=== PATIENT | female | born 1970 | race Caucasian/White ===

== ENCOUNTER 2019-03-28 20:32 | Inpatient (IN) ==
[2019-03-28] MEDS ORDERED: PANTOPRAZOLE IV 40 MG VIAL IVP ONE (21:13)
[2019-03-28] MEDS ORDERED: SIME PO ONE ×2 (21:13)
[2019-03-28] MEDS ORDERED: ONDANSETRON 4 MG/2 ML VIAL IVP ONE (21:13)
[2019-03-28] MEDS ORDERED: Lactated Ringers 1,000 ML PRIMARY IV ONE (21:13)
[2019-03-28] MEDS ORDERED: [UNRECOGNIZED DRUG - OTHER] PO ONE ×2 (21:13)
[2019-03-28] MEDS ORDERED: LIDOCAINE VISCOUS 2% PO ONE ×2 (21:13)
--- NOTE | 2019-03-28 21:13 | PDOC ---
Abdomen/Flank HPI - General Chief Complaint: Abdomen Pain Stated Complaint: UPPER ABD. PAIN Date Seen by Provider: 03/28/19 Time Seen by Provider: 20:45 Source: POSITIVE: Patient Exam Limitations: POSITIVE: No limitations Nurse's Notes Reviewed & Considered: Yes - Record Incomplete - History of Present Illness Initial Comments: 48 yo female presents to ED with complaint of abdominal pain for the past 4-5 days. It is in her upper abdomen and radiates into her right chest. She denies SOB/cough. Denies fevers/chills. Denies rhinorrhea/congestion/earache/sorethroat. Reports nausea with one vomiting episode. denies diarrhea. Body Location Affected: REPORTS: Chest, Abdomen Quality: REPORTS: Cramping, Sharpness Abdominal Pain Onset Location: REPORTS: RUQ, LUQ, Epigastric Abdominal Pain Radiation: REPORTS: Chest Modifying Factors: improves with: Analgesics. worse with: Vomiting Associated Symptoms: REPORTS: Chest pain, Chills, Heartburn, Nausea. DENIES: Diaphoresis, Fever, Shortness of breath, Syncope Similar Symptoms Previously: Yes (Patient states she had similar symptoms about 5 years ago) Recent Care Received: REPORTS: Other (Worked up 5 years ago and was told it wasnt her gallbladder) - Patient Home Medications Home Medications: Home Medications Methimazole 1 tab PO DAILY 04/23/18 - Patient Allergies Allergies/Adverse Reactions: Allergies Allergy/AdvReac Type Severity Reaction Status Date / Time No Known Allergies Allergy Verified 04/23/18 22:29 Past Medical History - heen HEENT History: Denies History Cardiovascular History: Denies History Respiratory History: Denies History Gastrointestinal History: Denies History Genitourinary History: Denies History Endocrine History: Hyperthyroidism Musculoskeletal History: Denies History Neurological History: Denies History Blood Disorders: Denies History Psychiatric History: Denies History History of Sexually Transmitted Diseases: No Cancer History: Denies History History of MDRO: No History of Other Communicable Diseases: No Tobacco Use: Current Every Day Smoker Alcohol Use: Occasionally In the Past 12 Months, Have Used or Abuse Any Substance: Marijuana Previous Surgical History: Yes Type / Date of Surgery: TONSILECTOMY Significant Family History: No pertinent family hx ROS - Limitations ROS Limitations: No Limitations Constitution: REPORTS: Chills. DENIES: Fever, Diaphoresis Cardiovascular: REPORTS: Chest Pain Respiratory: REPORTS: Denies Resp Symptoms Neurological: REPORTS: Denies Neuro Symptoms Gastrointestinal: REPORTS: Abdominal Pain, Nausea. DENIES: Vomitting, Diarrhea, Black Stools Endocrine: REPORTS: Denies Symptoms Musculoskeletal: REPORTS: Other (Chest wall and upper abdomen pain) Genitourinary: REPORTS: Denies Symptoms Eyes: REPORTS: Denies Symptoms ENT: REPORTS: Denies Symptoms Skin: REPORTS: Denies Skin Symptoms Lympathic: REPORTS: Denies Lympathic Symptoms Immunologic: POSITIVE: Denies Symptoms Psychiatric: POSITIVE: Denies Psych Symptoms Abdominal/Flank Pain PE - General Appearance General Appearance: POSITIVE: Alert, Mild Distress - HEENT HEENT: POSITIVE: Head Inspection Nml, Eyes Inspection Nml, Nose Inspection Nml, Oral/Dental Inspect. Nml, PERRL, EOMI, Dry Mucous Membranes - Neck Neck: POSITIVE: Normal Inspection, No Apparent Injury - Respiratory Respiratory: POSITIVE: No Respiratory Distress, Breath Sounds Normal - Cardiovascular Cardiovascular: POSITIVE: Regular Rate and Rhythm, Heart Sounds Normal, Equal Pulses, Strong Pulses, Tachycardia Peripheral Pulses: Radial (R): 2+, Radial (L): 2+, Dorsalis-pedis (R): 2+, Dorsalis-pedis (L): 2+ - Chest Chest: POSITIVE: Tender. NEGATIVE: Ecchymosis, Abrasion, Laceration - Abdomen Abdomen: Soft: (All Quadrants), Normal Bowel Sounds: (All Quadrants), Denies Tenderness: (LLQ), (RLQ), No Splenomegaly: (All Quadrants), No Hepatomegaly: (All Quadrants), No Guarding: (All Quadrants), No Rebound: (All Quadrants), No Distention: (All Quadrants), No Rigidity: (All Quadrants), Tenderness Noted: (RUQ), (LUQ) - Back Back: POSITIVE: Normal Inspection. NEGATIVE: CVA Tenderness (R), CVA Tenderness (L) - Skin Skin: POSITIVE: Intact, Normal For Race, Warm, Dry - Extremities Extremity: Non-Tender: (All Extremities), Normal ROM: (All Extremities), Normal Inspection: (All Extremities) - Neurological Neurological: POSITIVE: Affect Apporpriate, Oriented X3, household assistant Normal As Tested, Motor Normal, Sensation Normal - Psychological Psychiatric: POSITIVE: Affect Appropriate, Mood Appropriate Abdomen Progress - Results Reviewed by me Xrays/CTs/US Reviewed by me: Yes Discussed with Radiologist: No Lab Results Reviewed by Me: Yes CBC and BMP: 03/28/19 21:05 03/28/19 21:05 EKG Interpreted/Reviewed By Me:: Yes (NSR at [address]/T wave changes indicative of ischemia) EKG Interpretation:: POSITIVE: Normal Sinus Rhythm, Normal Rate, Normal QRS, Normal ST/T - Patient's Progress Pain Medication Addressed: POSITIVE: Yes Re-Examine Comment: Patient feels better after treatments here in ED. She states the GI cocktail seemed to help her symptoms the most. Xrays shows large calcification in RUQ of unknown origin. Will obtain CT of abdomen to further evaluate. Re-Examine Comment: CT of abdomen shows very large gallbladder with cholelithiasis (large stones) and pericholecystic edema and wall thickening. No free air. No free fluid. I discussed all results with the patient who expressed understanding of all results. Patient is still having pain despite dose of tramadol. Discussed case with Dr. Jurado, general surgery, and he recommended giving patient a dose of invanz now and admission for pain control, nausea control and consultation. I further discussed the case with Dr. Arevalo, hospitalist, who accepted the patient for admission. Status: POSITIVE: Improved (Pain less than started but still present) MDM / ED Course: IV line was established by nursing staff. Patient was given zofran, GI cocktail, protonix and a bolus of fluids. Will obtain acute abdominal series and EKG. Will obtain serum labs and UA. - Consult Consult (If Yes, Name of Consulting MD & Time Called): Yes (Dr. Jurado (general surgery)) Consulting MD will see pt:: [place] [facility] [place] Counseled: POSITIVE: Patient, Family, RE: Lab Results, RE: Radiology Results, RE: DX, RE: Need for F/U Patient Care Time - Estimated PCT Patient Care Time (In Minutes): 65 Vital Signs - VS Reviewed Vital Signs Reviewed: Yes Discharge Clinical Impression: Abdominal pain, Cholelithiasis and acute cholecystitis without obstruction, Nausea and vomiting Discharge Disposition: Admit to Inpatient Condition: Good Follow Up With: NONE,NONE [Primary Care Provider] - Care Transferred To: Dr. Arevalo with consultation by Dr. Jurado (surgery) Date Decision to Admit to Inpatient: 03/29/19 Time Decision to Admit to Inpatient: 01:09
[2019-03-28 21:18] LABS: BASOPHILS # (AUTO) 0.01 10*3/UL; BASOPHILS % (AUTO) 0.1 % (0-1); EOSINOPHILS # (AUTO) 0.05 10*3/UL; EOSINOPHILS % (AUTO) 0.6 % (0-8); Hematocrit [HCT] 41.5 % (37.0-47.0); Hemoglobin [HGB] 13.8 g/dL (12.0-16.0); LYMPHOCYTES # (AUTO) 2.71 10*3/uL; MEAN CORPUSCULAR HEMOGLOBIN 30.1 PG (27-31); MEAN CORPUSCULAR HGB CONC 33.3 g/dL (33-37); MEAN CORPUSCULAR VOLUME 90.6 FL (81-99); MEAN PLATELET VOLUME 9.7 FL (7.4-12.2); MONOCYTES % (AUTO) 7.1 % (5-15); NEUTROPHILS # (AUTO) 5.12 10*3/UL; NEUTROPHILS % (AUTO) 60.2 % (50-80); PLATELET MORPHOLOGY COMMENT NORMAL MORPHOLOGY (NORM); RBC MORPHOLOGY COMMENT NORMAL MORPHOLOGY (NORM); RED BLOOD COUNT 4.58 10^6/uL (4.20-5.40); WBC MORPHOLOGY COMMENT NORMAL MORPHOLOGY (NORM)
[2019-03-28 21:19] LABS: SERUM ALBUMIN 4.6 g/dL (3.5-4.8)
[2019-03-28 21:27] LABS: BILIRUBIN,URINE NEGATIVE (NEG); CLARITY,URINE CLEAR (CLEAR); COLOR,URINE YELLOW (Y); GLUCOSE, URINE (UA) NEGATIVE (NEG); OCCULT BLOOD,URINE SMALL (NEG); PH,URINE 6.5 (5.0-8.5); PROTEIN,URINE NEGATIVE (NEG); URINE SAMPLE TYPE CLEAN CATCH URINE; UROBILINOGEN,URINE 0.2 EU/dL (0.2)
[2019-03-28 21:31] LABS: BACTERIA,URINE RARE; SQUAMOUS EPITHELIAL CELL,UR RARE
--- NOTE | 2019-03-28 22:10 | DI ---
EXAM: XR Abdomen 2 Views With XR Chest CLINICAL HISTORY: ITS.REASON abdomen pain, chest pain Physician Notes: Tech Comments: TECHNIQUE: Frontal view of the chest, frontal view of the abdomen/pelvis and upright or decubitus view of the abdomen. COMPARISON: No relevant prior studies available. FINDINGS: Lungs: No consolidation. Pleural space: Unremarkable. No pneumothorax. Heart: Unremarkable. No cardiomegaly. Mediastinum: Unremarkable. Intraperitoneal space: Large calcification/concretion on the right side of the abdomen, seen in the upper and lower abdomen on different projections. No free air. Gastrointestinal tract: Unremarkable. Bones/joints: No acute fracture. Soft tissues: IUD. IMPRESSION: Large calcification/concretion on the right side of the abdomen, seen in the upper and lower abdomen on different projections.
[2019-03-28] MEDS ORDERED: traMADol 50 MG TABLET PO ONE (23:16)
--- NOTE | 2019-03-29 00:29 | DI ---
EXAM: CT Abdomen and Pelvis With Intravenous Contrast CLINICAL HISTORY: ITS.REASON pain, nausea, calcification on xrays Physician Notes: Tech Comments: TECHNIQUE: Axial computed tomography images of the abdomen and pelvis with intravenous contrast. COMPARISON: No relevant prior studies available. FINDINGS: Lung bases: Unremarkable. ABDOMEN: Liver: Unremarkable. Gallbladder and bile ducts: Gallbladder distention, cholelithiasis, wall thickening and pericholecystic edema. Pancreas: Unremarkable. Spleen: Unremarkable. Adrenals: Unremarkable. Kidneys and ureters: Nonobstructing left renal stone. Right kidney is unremarkable. Stomach and bowel: No federico mural thickening. Nonobstructive bowel gas pattern. PELVIS: Appendix: No findings to suggest acute appendicitis. Bladder: Unremarkable. Reproductive: IUD. ABDOMEN and PELVIS: Intraperitoneal space: Unremarkable. Bones/joints: No acute fracture. Soft tissues: Unremarkable. Vasculature: Unremarkable. No abdominal aortic aneurysm. Lymph nodes: No enlarged lymph nodes. IMPRESSION: Gallbladder distention, cholelithiasis, wall thickening and pericholecystic edema. Findings are consistent with cholecystitis. <MYCVCSECTION> [employer] 03/29/19 01:28 Verify Receipt Verified receipt with [facility] in ER given to MD Chaves on 03/29 01:28 (-06:00)
[2019-03-29] MEDS ORDERED: Ertapenem Inj 1 GM in Sodium Chloride 0.9% 100 ML IV ONE (01:04)
[2019-03-29] MEDS ORDERED: CALCIUM CARBONATE 500 MG (TUMS) CHEWABLE TABLET PO PRN (01:57)
[2019-03-29] MEDS ORDERED: LIDOCAINE W/ SODIUM BICARB 0.5 ML SYR SUBD PRN ×2 (01:57→11:05)
[2019-03-29] MEDS ORDERED: DOCUSATE 100 MG CAPSULE PO PRN (01:57)
[2019-03-29] MEDS ORDERED: ACETAMINOPHEN 325 MG TABLET PO PRN (01:57)
[2019-03-29] MEDS: ONDANSETRON 4 MG/2 ML VIAL IVP PRN ×2 (02:20→05:58)
[2019-03-29] MEDS: Lactated Ringers 1,000 ML PRIMARY IV SCH ×2 (02:20→09:30)
[2019-03-29] MEDS: MORPHINE SULFATE 2 MG/1 ML IVP PRN ×4 (02:20→08:14)
[2019-03-29 04:21] LABS: BASOPHILS # (AUTO) 0.01 10*3/UL; BASOPHILS % (AUTO) 0.1 % (0-1); EOSINOPHILS # (AUTO) 0.11 10*3/UL; EOSINOPHILS % (AUTO) 1.3 % (0-8); Hematocrit [HCT] 37.6 % (37.0-47.0); Hemoglobin [HGB] 12.2 g/dL (12.0-16.0); LYMPHOCYTES # (AUTO) 2.35 10*3/uL; MEAN CORPUSCULAR HEMOGLOBIN 29.8 PG (27-31); MEAN CORPUSCULAR HGB CONC 32.4 g/dL (33-37); MEAN CORPUSCULAR VOLUME 91.7 FL (81-99); MEAN PLATELET VOLUME 9.8 FL (7.4-12.2); MONOCYTES # (AUTO) 0.74 10*3/UL (0.3-0.8); MONOCYTES % (AUTO) 8.7 % (5-15); NEUTROPHILS # (AUTO) 5.27 10*3/UL; NEUTROPHILS % (AUTO) 62.1 % (50-80)
[2019-03-29 04:23] LABS: PLATELET MORPHOLOGY COMMENT NORMAL MORPHOLOGY (NORM); RBC MORPHOLOGY COMMENT NORMAL MORPHOLOGY (NORM); WBC MORPHOLOGY COMMENT NORMAL MORPHOLOGY (NORM)
[2019-03-29 04:30] LABS: BLOOD UREA NITROGEN 6 mg/dL (7-22); BUN/CREATININE RATIO 6.66 (6-20); SERUM ALBUMIN 3.6 g/dL (3.5-4.8)
[2019-03-29] MEDS ORDERED: Methimazole Tab 5 MG TAB PO SCH (09:00)
--- NOTE | 2019-03-29 09:39 | PDOC ---
HPI - History of Present Illness History of Present Illness: 48 yo female presents to ED complaining of R upper quadrant pain for 4 days. occasional nausea .Diagnosed with Acute ramona and was asked by Dr Jurado to admit the pt and he would see her this AM. Pt pain is controlled with morphine labs are available this morning as requested by Dr Jurado. Past Medical History Medical History: hyperthroidism Tobacco Use: Current Every Day Smoker In the Past 12 Months, Have Used or Abuse Any of the Following Substance: Marijuana Medication / Allergies Home Medications: Home Medications Medication Instructions Recorded Confirmed Methimazole 1 tab PO DAILY 04/23/18 03/29/19 Allergies/Adverse Reactions: Allergies Allergy/AdvReac Type Severity Reaction Status Date / Time No Known Allergies Allergy Verified 03/29/19 02:08 Review of Systems - Review of Systems All Systems: Reviewed & No Additional Complaints Except as Stated - Respiratory Respiratory: DENIES: Negative System Review, Cough, Sputum, Dyspnea At Rest, Dyspnea with Exertion, Pleuritic Pain, Hemoptysis, Wheezing, Other, See HPI - Cardiovascular Cardiovascular: DENIES: Negative System Review, Chest Pain, Edema, Syncope, Palpitations, Orthopnea, Paroxysmal Nocturnal Dyspnea, Other, See HPI - Gastrointestinal Gastrointestinal / Abdominal: REPORTS: Nausea, Abdominal Pain. DENIES: Vomiting, Diarrhea, Bloody Stool, Melena, Bright Red Blood per Rectum Exam - Vitals Vital Signs: Vital Signs Temperature 97.0 F Temperature Source Temporal Artery Scan Pulse Rate [Pulse Oximeter] 58 Pulse Rate 67 Respiratory Rate 16 Blood Pressure [Right Arm] 111/56 Blood Pressure [Left Arm] 130/58 Blood Pressure 134/75 Pulse Ox 94 Oxygen Delivery Method Room Air Height 5 ft 5 in Weight 144 lb Results - Labs CBC and BMP: 03/29/19 04:03 03/29/19 04:03 Assessment and Plan - Patient Problems (1) Cholelithiasis and acute cholecystitis without obstruction Current Visit: Yes Status: Acute Comment: defer to Dr jurado , labs reviewed ,morphine for pain Code(s): K80.00 - Calculus of gallbladder with acute cholecystitis without obstruction (2) Abdominal pain Current Visit: Yes Status: Acute Comment: prn morphine Code(s): R10.9 - Unspecified abdominal pain (3) Nausea and vomiting Current Visit: Yes Status: Acute Comment: zofran iv as needed Code(s): R11.2 - Nausea with vomiting, unspecified
[2019-03-29] MEDS ORDERED: BUPIVACAINE 0.25% W/ EPI - 10 ML VIAL ONE ×2 (10:54→12:30)
[2019-03-29] MEDS ORDERED: Bacteriostatic NaCl Inj 30ml Vial ONE ×2 (10:54→12:34)
[2019-03-29] MEDS ORDERED: MIDAZOLAM HCL 2 MG/2 ML VIAL ONE (10:55)
[2019-03-29] MEDS ORDERED: fentaNYL Inj 100 MCG/2 ML VIAL ONE ×2 (10:55→13:08)
[2019-03-29] MEDS ORDERED: Iothalamate Meglumine 30 ML VIAL IV ONE (10:59)
[2019-03-29] MEDS ORDERED: LIDOCAINE MPF 2% - 5 ML (20 MG/1 ML) ONE (10:59)
[2019-03-29] MEDS ORDERED: PROPOFOL 10 MG/1 ML (200 MG/20 ML) VIAL IV ONE (11:00)
[2019-03-29] MEDS ORDERED: Nasal Sanitizer POPSWAB ampule 3 AMP (Nozin) PREOP DOSE ENOS SCH (11:00)
[2019-03-29] MEDS ORDERED: ROCURONIUM 10 MG/1 ML - 5 ML VIAL IVP ONE (11:03)
[2019-03-29] MEDS ORDERED: KETAMINE 100 MG/1 ML - 5 ML ONE (11:04)
[2019-03-29] MEDS ORDERED: IPRATROPIUM/ALBUTEROL SULFATE 3 ML NEB NEB ONE ×2 (11:04→11:52)
--- NOTE | 2019-03-29 11:04 | CRNA.PROGR ---
Anesthesia Time - Procedure/Recovery Time Start Date: 03/29/19 End Date: 03/29/19 Anesthesia : Time In: 12:02 Anesthesia : Time Out: 13:57 Anesthesia : Total Time: 115 - Total Anesthesia Time Total Anesthesia Time (minutes): 115 - Other Weight: 65.862 kg Height: 5 ft 5 in Body Mass Index (BMI): 24.1 Physical Status: P2 (tobacco) Anesthesia Type: General Anesthesia : ET
[2019-03-29] MEDS ORDERED: Prochlorperazine Edisylate Inj 10mg/2ml vial IVP PRN (11:05)
[2019-03-29] MEDS ORDERED: HYDROmorphone 2 MG/1 ML IVP PRN (11:05)
[2019-03-29] MEDS ORDERED: ATROPINE SULFATE 0.4 MG/1 ML VIAL IVP PRN (11:05)
[2019-03-29] MEDS ORDERED: ONDANSETRON 4 MG/2 ML VIAL IVP PRN ×2 (11:05→14:38)
[2019-03-29] MEDS ORDERED: fentaNYL Inj 100 MCG/2 ML VIAL IVP PRN (11:05)
--- NOTE | 2019-03-29 11:05 | CONSULT ---
Consult Note - Consult Consult Date: 03/29/19 Reason for Consult: PreOp Consulation : General Surgery Requesting Physician: Dr. Kuldeep Calderón, Dr. Arevalo Primary Care Provider: NONE NONE - History of Present Illness History of Present Illness: The patient is a 48-year-old female who presents with a distended gallbladder with possible inflammation and large gallstones. Patient reports she's been having problems for years. 3 years ago she saw in [place]. She had a workup of her gallbladder and was told she had no gallbladder problems. However that was fired shortly thereafter. She reports that for years she has had attacks. There is a strong family history of gallbladder problems. They are epigastric and right upper quadrant pain with nausea and vomiting and bloating. The to happen every 6 months but now over 3-4 times a week. For the last 5 days she has had an unrelenting attack. She presented to the emergency room last night. An x-ray showed large calcifications in the right upper quadrant. Subsequent CT scan showed a distended gallbladder with wall thickening and edema as well as large gallstones. She was not toxic. She was afebrile. Her lab work was unremarkable. She was admitted to the hospitalist service and I'm asked to see her in consultation. She was given a gram of Invanz IV early this morning. She has had some pain medicines. She still has the discomfort. Review of Systems - Gastrointestinal Gastrointestinal / Abdominal: REPORTS: Nausea, Abdominal Pain, Poor Appetite, Heartburn, Bloating, See HPI Past Medical History Medical History: hyperthroidism Surgical History: History of tonsillectomy. History of wisdom teeth extraction. Tobacco Use: Current Every Day Smoker (1 pack a day.) In the Past 12 Months, Have Used or Abuse Any of the Following Substance: Maribraulio uana Alcohol Use: Rarely Medication / Allergies Home Medications: Home Medications Medication Instructions Recorded Confirmed Methimazole 1 tab PO DAILY 04/23/18 03/29/19 Allergies/Adverse Reactions: Allergies Allergy/AdvReac Type Severity Reaction Status Date / Time No Known Allergies Allergy Verified 03/29/19 02:08 Results - Labs CBC and BMP: 03/29/19 04:03 03/29/19 04:03 - Imaging Status: Image Reviewed by Me (And discussed with the radiologist.), Report Reviewed by Me Exam - Vitals Vital Signs: Vital Signs Temperature 97.4 F Temperature Source Temporal Artery Scan Pulse Rate [Pulse Oximeter] 51 Pulse Rate 67 Respiratory Rate 16 Blood Pressure [Right Arm] 156/72 Blood Pressure [Left Arm] 130/58 Blood Pressure 134/75 Pulse Ox 95 Oxygen Delivery Method Room Air Height 5 ft 5 in Weight 145 lb 3.2 oz - General General Appearance: Cooperative, Mild Distress - Eye Eye Exam: POSITIVE: No Scleral Icterus - Respiratory Respiratory Exam: POSITIVE: Clear to Auscultation - Bilaterally, Breathing Non Labored - Cardiovascular Cardiovascular Exam: POSITIVE: RRR, No Murmur - GI/Abdominal GI/Abdominal Exam: POSITIVE: Normal Bowel Sounds, Soft, Positive for RUQ Pain Additional GI/Abdominal Exam Details: Right upper quadrant tenderness to palpation. Fullness. - Rectal Rectal Exam: POSITIVE: Deferred - Neurological Neurological Exam: POSITIVE: Alert, Oriented x 3 - Psychiatric Psychiatric Exam: POSITIVE: Normal Affect, Normal Mood Assessment and Plan - Patient Problems (1) Cholelithiasis with chronic cholecystitis without biliary obstruction Current Visit: Yes Status: Acute Priority: High Comment: Possibly acute cholecystitis based on CT scan but not on lab work. Proceed with laparoscopic cholecystectomy with interoperative cholangiogram.The procedure has been discussed with the patient in complete yet simple terms incl uding benefits, risks, and alternatives. All questions have been answered. Informed consent has been obtained. Code(s): K80.10 - Calculus of gallbladder with chronic cholecystitis without obstruction
--- NOTE | 2019-03-29 11:05 | EKG ---
[address] [address] Measurements Intervals [place] Rate: 83 P: 74 IA: 121 QRS: 76 QRSD: 96 T: 67 QT: 365 QTc: 404 Interpretive Statements SINUS RHYTHM No previous ECG available for comparison Electronically Signed On 03-29-19 15:50:41 MDT by Gabriel Chahal [email or web address]
[2019-03-29] MEDS ORDERED: Lactated Ringers 1,000 ML PRIMARY IV SCH ×2 (11:15→14:38)
[2019-03-29] MEDS ORDERED: DEXAMETHASONE PF 10 MG/1 ML VIAL ONE (12:41)
[2019-03-29] MEDS ORDERED: ONDANSETRON 4 MG/2 ML VIAL ONE (12:45)
[2019-03-29] MEDS ORDERED: Lactated Ringers 1,000 ML PRIMARY IV ONE (13:18)
[2019-03-29] MEDS ORDERED: KETOROLAC 30 MG/1 ML VIAL ONE (13:36)
--- NOTE | 2019-03-29 13:57 | GEN.OPNOTE ---
Operative Note Surgery Date: 03/29/19 Preoperative Diagnosis: Acute cholecystitis with cholelithiasis. Postoperative Diagnosis: Acute cholecystitis with cholelithiasis. Procedure: Laparoscopic cholecystectomy with interoperative cholangiogram. Surgeon: Rolando Jurado MD Design Technician: Efrain Greenberg MD Anesthesia Provider: Humaira Gambino CRNA Anesthesia Type: General Estimated Blood Loss (mL): 25 Fluids: 1700 mL of crystalloid. 30 mg of IV Toradol at the end of the procedure. Patient got. 1 g of IV Invanz at approximately 1 AM. Pathology: Specimen to pathology. Indications: Patient with long history of abdominal complaints. She presented to the emergency room last night with 45 days of right upper quadrant abdominal pain radiating to back and chest. CT showed a thick-walled gallbladder with large stones. Her liver function tests were normal. She had continued pain. She does some antibiotics earlier this morning. She was taken to the operating room for cholecystectomy. Findings: Dilated and thick-walled gallbladder with large stones. Intraoperative cholangiogram initially showed some hang-up in the distal common bile duct. More dye was infused and contrast suddenly spilled into the duodenum. There was a normal distal tapering. This could have represented a small stone or more likely some spasm. The bile duct was slightly enlarged. There were no filling defects. There is a normal branching pattern. There were a lot of adhesions in the right abdomen. Etiology unclear. Some of these were taken down intraoperatively. The rest were lateral and there was no reason to take them down. They were around the area of the ascending colon. Complications: None. Operative Summary: The patient was taken to the operating room and placed on the operating table in the supine position. Following induction of general anesthetic the abdomen was prepped and draped in a sterile fashion. A surgical timeout was done. The infraumbilical region was infiltrated with 1/4% Marcaine with epinephrine. An incision was made. The abdominal wall was elevated. A Veres needle was placed without apparent injury and a pneumoperitoneum was induced. The veres needle was withdrawn. A 10 mm trocar was placed without apparent injury and a laparoscope was inserted. Under direct visualization and following Marcaine injection a 10 mm trocar was placed in the epigastrium and 2x5 mm trochars were placed along the costal margin. As previously described there were some adhesions in the right abdomen. Some of them were taken down so we had good visualization of the gallbladder. The gallbladder was markedly distended and thick walled. There was evidence of acute cholecystitis. The gallbladder was grasped and elevated. Blunt dissection was used to free th e cystic duct. A clip was placed along the neck of the gallbladder. A hole was made in the side wall of the cystic duct. A [place] cholangiocatheter was inserted. Intraoperative cholangiogram was taken and was normal after the dye flowed into the duodenum. [Please see the findings section]. The [place] catheter was withdrawn. 2 clips were placed on the distal cystic duct and the duct was divided. The cystic artery was isolated. 2 clips were placed proximally and one distally and the artery was divided. There was a a lot of fatty tissue around the neck of the gallbladder. There was a secondary posterior artery which we had some bleeding from. It took a few minutes to get control but it was eventually isolated and clipped proximally and distally and divided. The gallbladder was taken from the hepatic bed using electrocautery. Hemostasis was assured. Appropriate irrigation and suctioning were performed. Final check for hemostasis was made. 5 mL of Marcaine was placed in the gallbladder fossa and 5 over the dome of the liver. The gallbladder was placed in an Endopouch. The laparoscope was moved to the epigastric port. The gallbladder was grasped with a large grasper and brought up to the umbilical trocar site. The fascial defect at the umbilicus was increased in size. The gallbladder was brought out through the trocar site without difficulty. The fascial defect at the umbilicus was closed with a running 0 Vicryl. A final check for hemostasis was made. The CO2 was burped from the abdominal cavity. The trochars were removed under direct visualization. The epigastric trocar site fascia was closed with a simple stitch of 0 Vicryl. No other trocar sites required fascial closure. The skin wounds were closed with inverted interrupted or running subcuticular 4-0 Monocryl followed by Mastisol Steri- Strips and an appropriate dressing. Patient tolerated the procedure well without complication. Patient was taken to the recovery room in stable condition. All counts were correct. Patient Problems - Patient Problem List (1) Cholelithiasis with chronic cholecystitis without biliary obstruction Current Visit: Yes Status: Acute Priority: High Code(s): K80.10 - Calculus of gallbladder with chronic cholecystitis without obstruction Category: Medical Procedure Codes - Surgical Procedures Primary Surgical Procedure: 65754 : Cholecsytectomy w/Cholangiograph
[2019-03-29] MEDS ORDERED: HYDROcodone-APAP 5 MG -325 MG TABLET PO PRN (14:38)
[2019-03-29] MEDS ORDERED: MORPHINE SULFATE 2 MG/1 ML IVP PRN (14:38)
[2019-03-29 16:25] VITALS: BP 122/70; TEMP 97.6; O2SAT 97
[2019-03-29] MEDS ORDERED: KETOROLAC 15 MG/1 ML VIAL IVP PRN (17:30)
--- NOTE | 2019-03-29 18:15 | DCSUMMARY ---
Hospitalization Summary Hospital Course: Final Discharge Diagnosis: Current Visit Problems Problem Status Onset Code Abdominal pain Acute R10.9 Cholelithiasis and acute cholecystitis without obstruction Acute K80.00 Nausea and vomiting Acute R11.2 Cholelithiasis with chronic cholecystitis without biliary obstruction Acute K80.10 Diagnostic Data, Laboratory Data, and Procedures of Signifigance: History and Physical pertinent to Admission: Course of Hospitalization: Is a very nice 48-year-old female who comes into the hospital with right upper quadrant pain for about 4-5 days was seen and diagnosed with acute cholecystitis by CT scan seen by Dr. Jurado this morning who took her to surgery around her she did super up postop she tolerated her food the good urine output and pain is minimal and patient would like to be discharged home Dr. Jurado is aware of this. She will be discharged in stable and improved condition follow-up Dr. Jurado as scheduled On the date of discharge, the patient was examined: Gen.: No acute distress, alert, nontoxic Heart: Regular rate and rhythm, no murmurs, clicks, gallops, or rubs Lungs: Clear to auscultation bilaterally, breathing is nonlabored Abdomen/GI: Normal tones on auscultation, soft, nontender, nondistended Musculoskeletal/extremities: No clubbing, cyanosis, or edema Vitals reviewed and are listed below Vital Signs (24 hrs) 03/28/19 20:32 03/29/19 01:55 03/29/19 02:00 Temperature 98.0 F 97.2 F 97.9 F Pulse Rate 67 Pulse Rate [Pulse Oximeter] 100 71 Respiratory Rate 16 17 14 Blood Pressure 134/75 Blood Pressure [Left Arm] 144/90 145/74 Blood Pressure [Right Arm] Pulse Ox 97 97 98 03/29/19 04:20 03/29/19 05:21 03/29/19 06:44 Temperature 98.5 F 97.0 F Pulse Rate Pulse Rate [Pulse Oximeter] 62 58 L Respiratory Rate 14 16 Blood Pressure Blood Pressure [Left Arm] 130/58 Blood Pressure [Right Arm] 111/56 Pulse Ox 95 98 94 03/29/19 10:49 03/29/19 11:48 03/29/19 11:58 Temperature 97.4 F 97.4 F Pulse Rate 50 L Pulse Rate [Pulse Oximeter] 51 L Respiratory Rate 16 18 Blood Pressure Blood Pressure [Left Arm] Blood Pressure [Right Arm] 156/72 Pulse Ox 95 98 03/29/19 11:59 03/29/19 13:50 03/29/19 13:55 Temperature 96.9 F Pulse Rate 55 L 80 79 Pulse Rate [Pulse Oximeter] Respiratory Rate 18 15 15 Blood Pressure 115/66 117/57 Blood Pressure [Left Arm] Blood Pressure [Right Arm] Pulse Ox 100 100 98 03/29/19 13:59 03/29/19 14:05 03/29/19 14:10 Temperature Pulse Rate 78 76 73 Pulse Rate [Pulse Oximeter] Respiratory Rate 13 14 15 Blood Pressure 127/66 131/74 124/62 Blood Pressure [Left Arm] Blood Pressure [Right Arm] Pulse Ox 97 97 93 03/29/19 14:20 03/29/19 14:30 03/29/19 14:38 Temperature 97.3 F Pulse Rate 60 67 Pulse Rate [Pulse Oximeter] 67 Respiratory Rate 15 16 Blood Pressure 119/66 123/67 Blood Pressure [Left Arm] Blood Pressure [Right Arm] 135/68 Pulse Ox 96 93 96 03/29/19 16:21 Temperature 97.6 F Pulse Rate Pulse Rate [Pulse Oximeter] 63 Respiratory Rate 18 Blood Pressure Blood Pressure [Left Arm] Blood Pressure [Right Arm] 122/70 Pulse Ox 97 Assessment and Plan: 1. As per discharge assessments above 2. Disposition: Home 3. Condition on discharge, stable and improved. 4. Diet: regular diet 5. Activities: resume normal activities 6. Follow-Up: 1. PCP 2. 7. Medications at the Time of Discharge: Home Medications Medication Instructions Recorded Confirmed Methimazole 1 tab PO DAILY 04/23/18 03/29/19 Hydrocodone/Acetaminophen 1 - 2 ea PO Q4H PRN PRN #24 tab 03/29/19 [Hydrocodon-Acetaminophen 5-325] 8. Time, care, counseling and coordination of care for this discharge is greater than 30 minutes. Exam - Vitals Vital Signs: Vital Signs Temperature 97.6 F Temperature Source Temporal Artery Scan Pulse Rate [Pulse Oximeter] 63 Pulse Rate 67 Respiratory Rate 18 Blood Pressure [Right Arm] 122/70 Blood Pressure [Left Arm] 130/58 Blood Pressure 123/67 Pulse Ox 97 Oxygen Flow Rate RA Oxygen Delivery Method Room Air Height 5 ft 5 in Weight 145 lb 3.2 oz Patient Problems - Patient Problem List (1) Cholelithiasis and acute cholecystitis without obstruction Current Visit: Yes Status: Acute Code(s): K80.00 - Calculus of gallbladder with acute cholecystitis without obstruction Category: Medical (2) Abdominal pain Current Visit: Yes Status: Acute Code(s): R10.9 - Unspecified abdominal pain Category: Medical (3) Nausea and vomiting Current Visit: Yes Status: Acute Code(s): R11.2 - Nausea with vomiting, unspecified Category: Medical
[2019-03-29 19:55] VITALS: RESP 16
--- NOTE | 2019-03-29 22:16 | DI ---
OPERATIVE CHOLANGIOGRAM, 03/29/2019 12:00 PM : Clinical History: Cholelithiasis. Views: Cine images with contrast present on all films. Reflux: Reflux into the duodenum. Stones: No retained stone in common duct. Toward the end of the sequence, there is a spherical fillin g defect that represents an inflated balloon in the common bile duct. Bile Ducts: Normal visualized portions of intrahepatic biliary tree. Mild common duct dilatation but no retained stone visualized. Reading: Normal operative cholangiogram.
[2019-03-30] MEDS ORDERED: Ertapenem Inj 1 GM in Sodium Chloride 0.9% 100 ML IV SCH ×2 (01:30)
[2019-03-30] MEDS ORDERED: Methimazole Tab 5 MG TAB PO SCH (09:00)
== END 2019-03-29 19:45 | disposition home or self-care (01) | DRG 419 ==
LOC: ER 20:32 → MED/SURG 03-29 01:18 → OPS 03-29 11:27 → MED/SURG 03-29 14:38
PROVIDERS: ADMIT Internal Medicine; ATTEND Internal Medicine